=== PATIENT | female | born 1995 | race Caucasian/White ===

== ENCOUNTER 2022-01-08 13:37 | Outpatient (CLI) | payer BC, SELFPAY | END 2022-01-08 13:38 | disposition home or self-care (01) | PROVIDERS: PCP Family Medicine; Visit Provider Physician Assistant | DX: Z01.419 Encounter for gynecological examination (general) (routine) without abnormal findings (principal) | CPT/HCPCS: 88174 ==

== ENCOUNTER 2024-08-07 08:21 | Outpatient (CLI) | payer OTHER, SELFPAY | END 2024-08-07 08:22 | disposition home or self-care (01) | LOC: US 08:22 | PROVIDERS: PCP Family Medicine; Visit Provider Registered Nurse | DX: Z34.91 Encounter for supervision of normal pregnancy, unspecified, first trimester (principal); O20.9 Hemorrhage in early pregnancy, unspecified; Z3A.12 12 weeks gestation of pregnancy | CPT/HCPCS: 76801 ==

== ENCOUNTER 2024-08-07 09:44 | Outpatient (CLI) | payer OTHER, SELFPAY ==
[2024-08-07 13:00] LABS: Bacterial Vaginosis* Negative (Negative); Candida glab/krus NOT DETECTED (No Detected); Candida species DETECTED (No Detected); Trichomonas vaginalis NOT DETECTED (No Detected)
[2024-08-07 13:31] LABS: Chlamydia DNA Amplified* NOT DETECTED (No Detected); GC DNA Amplified* NOT DETECTED (No Detected)
== END 2024-08-07 09:45 | disposition home or self-care (01) ==
PROVIDERS: PCP Family Medicine; Visit Provider Registered Nurse
DX: Z34.91 Encounter for supervision of normal pregnancy, unspecified, first trimester (principal); N89.8 Other specified noninflammatory disorders of vagina; O20.9 Hemorrhage in early pregnancy, unspecified; Z3A.12 12 weeks gestation of pregnancy
CPT/HCPCS: 81513; 83020; 83021; 85660; 86592; 86703; 86704; 86706; 86762; 86787; 86803; 86850; 86900; 86901; 87086; 87340; 87481; 87491; 87591; 87661

== ENCOUNTER 2024-10-05 08:24 | Outpatient (CLI) | payer OTHER, SELFPAY ==
--- NOTE | 2024-10-05 08:15 | CRLHL7_ITS ---
For Patients: As a result of the 21st Century Cures Act, medical imaging exams and procedure reports are released immediately into your electronic medical record. You may view this report before your referring provider. If you have questions, please contact your health care provider. OB ULTRASOUND SURVEY LMP: 05/14/2024. MARIO by LMP: 02/18/2025. GA: 20 w, 4 d. INDICATION: FAS. TECHNIQUE: Real time cox scale imaging of the fetus was performed. Evaluate anatomy. Transabdominal. position: Breech. Cervix: Visualized. Technique: Transabdominal. Length of closed cervix: 4.9 cm. Placenta/cord: Placenta Position: Anterior. Technique: Transabdominal. Placenta tip to internal OS: 6.3 cm. Umbilical Cord: 3-vessel cord. Placenta insertion: Central. Amniotic Fluid: 6.2 cm SDP (greater than/equal to: 2- less than 8 cm). SURVEY: Observed Structures. Calvarium/Spine: Cerebellum: 2.1 cm, 21 w 1 d. Cisterna Magna: 4.8 mm. Nuchal Fold: 4.7 mm. Lateral Ventricle: 6.1 mm. CSP: Yes. Midline Falx: Yes. Choroid Plexus: Yes. Spine: Yes. Abdomen: Stomach: Yes. Abd Cord Insertion: Yes. Urinary Bladder: Yes. Kidneys: Yes. Diaphragm: Yes. Face: Nose/lips: Yes. Orbital view: Yes. Profile: Yes. Limbs: Upper Extremities: Yes. Lower Extremities: Yes. Hands: Yes. Feet: Yes. Vascular: 4-Chamber Heart: Yes. LVOT: Yes. RVOT: Yes. 3VV: Yes. 3VTV: Yes. BPD: 5.0 cm. 21 w, 1 d, 71 percent. HC: 18.4 cm. 20 w, 5 d, 48 percent. AC: 16.0 cm. 21 w, 1 d, 62 percent. FL: 3.3 cm. 20 w, 3 d, 38 percent. FL/AC ratio: 20.9 percent. HC/AC ratio: 1.2. heart rate: 142 bpm. age by this US: 21 w, 0 d. MARIO by this US: 02/15/2025. EFW: - g. Weight: - lbs, 13 oz. Percentile by MARIO: 59.1 percent. IMPRESSION: 1. Correlation of clinical and sonographic dates. 2. Anatomic survey appeared normal although the spine was incompletely visualized. Short-term follow-up recommended. 3. Residual blood products are present adjacent to the placenta measuring 10.6 x 1.6 x 2.7 cm on the right and 12.3 x 2.3 x 1.9 cm on the left. Ramy Castro M.D. Diagnostic Radiologist [email or web address] SP/Dictated by: Ramy Castro MD @ 10/05/2024 11:02:00 AM (Electronically Signed)
== END 2024-10-05 08:25 | disposition home or self-care (01) ==
LOC: US 08:26
PROVIDERS: PCP Family Medicine; Visit Provider Advanced Practice Midwife
DX: Z34.92 Encounter for supervision of normal pregnancy, unspecified, second trimester (principal); Z3A.20 20 weeks gestation of pregnancy
CPT/HCPCS: 76805

== ENCOUNTER 2024-12-03 10:05 | Outpatient (CLI) | payer OTHER, SELFPAY | END 2024-12-03 10:06 | disposition home or self-care (01) | LOC: NFLDREF 12-08 15:47 | PROVIDERS: PCP Family Medicine; Referring Provider Family Medicine; Visit Provider Midwife | DX: Z34.83 Encounter for supervision of other normal pregnancy, third trimester (principal) | CPT/HCPCS: 86592 ==

== ENCOUNTER 2025-01-22 13:34 | Outpatient (CLI) | payer OTHER, SELFPAY | END 2025-01-22 13:35 | disposition home or self-care (01) | LOC: NFLDREF 01-27 19:03 | PROVIDERS: PCP Family Medicine; Referring Provider Family Medicine; Visit Provider Advanced Practice Midwife | DX: Z34.93 Encounter for supervision of normal pregnancy, unspecified, third trimester (principal); Z3A.36 36 weeks gestation of pregnancy | CPT/HCPCS: 87081; 87653 ==

== ENCOUNTER 2025-02-20 19:26 | Inpatient (IN) | payer OTHER, SELFPAY ==
[2025-02-20 19:46] VITALS: BP 135/94; PULSE 92; RESP 16; TEMP 37
[2025-02-20 19:55] VITALS: BP 130/87; PULSE 96
--- NOTE | 2025-02-20 20:39 | P.LDBA_ITS ---
Subjective History of Present Illness Date Seen: 02/20/25 Narrative: Mirtha is being admitted to Labor and Delivery for elective IOL. She is a 29 year old at 40.2 weeks gestation. Her full history and physical was dictated by Stoney Carr CNM on 02/01/25. Please see this for details. She was checked earlier today and was found to be 2cm/50% and doesn't feel she had much for contractions or change in condition. Offered but declined SVE at this time. We discussed options for IOL with a cheng score of 6. We discussed risks and benefits of Pitocin and Cytotec. She would like to proceed with vaginal Cytotec for her induction. We briefly discussed the possibility of increasing the dose from 25mcg to 50mcg if no changes or contractions after 2 doses. Reviewed the possibility of Morphine and Vistaril for therapeutic rest tonight. She is considering. Specific Issues/Plans G 2 P 1001 : Alexander Daughter Kit. It is a boy! H&P 02/01/25 Stoney Carr CNM # Placental mg: 3.3 x0.8x1.8cm. Reassess at 20 week FAS: 2 large lakes seen (Rt-10.6 x 1.6 x 2.7 cm) (Lt 12.3 x 2.3 x 1.9 cm) [facility] referral for Level II: no concerns # Mild right urinary tract dilation, measuring 4.8 mm resolved Ultrasound: 1st trimester US (08/06/24): Sonographic gestational age 12 weeks 4 days and sonographic due date of 02/15/2025. Anterior subchorionic hemorrhage measures 4.5 x 1.4 x 5.6 cm. Placental Mg measures 3.3 x 0.8 x 1.8 cm. Anatomy US (10/05/2024): IMPRESSION: 1. Correlation of clinical and sonographic dates. 2. Anatomic survey appeared normal although the spine was incompletely visualized. Short-term follow-up recommended. 3. Residual blood products are present adjacent to the placenta measuring 10.6 x 1.6 x 2.7 cm on the right and 12.3 x 2.3 x 1.9 cm on the left. [facility] Level II follow-up US (10/19/2024): 1. SIUP, 2. Right urinary tract dilation (UTD-A1) with right pelvis measuring 4.8 mm. No calyceal dilation and renal parenchyma is normal. No evidence of hydroureter and normal bladder. 3. No other anomalies detected by US. 4. EFW 53%. 5. amniotic fluid volume appears normal. 6. Cervix appeared long and closed on transabdominal imaging. Lev 2 Anatomy scan: 12/29/24: F/u inadequate views and placental lakes- Lakes resolved and all other findings normal. No further f/u recommended. Pap: Due Flu: Up-to-date Covid: Booster completed 08/07/2024 Tdap: 12/15/2024 RSV: N/A 32wk Mental Health: PHQ-9= [] ELAINE-7= [] OB - Problem Based A/P Additional Plan (1) Elective induction of labor planned: Status: Acute Plan ASSESSMENT:? at 40.2 weeks gestation? GBS negative? complicated by: placental lakes-resolved, mild right urinary tract dilation-resolved? Labor type: elective IOL? Blood type:?O+ ?? PLAN:? 1. Reviewed risks and benefits of IOL with Pitocin vs Cytotec. Pt prefers vaginal Cytotec. Pitocin to follow if needed.? 2. Considering water . Consent signed. Hep C negative.? 3. Candidate for analgesia of choice. Planning unmedicated but open to epidural.? 4. Anticipate ? 5. IV placement not needed at this time. Consider placement if patient condition changes. 6. Monitoring per Cytotec induction policy. Delivery/Labor/Induction Plan Plan: induction Induction method: per misoprostol protocol OB Result Labs Blood Type: O (+) positive Rubella: immune RPR/VDLR: nonreactive GBS Status: negative HBsAG: negative OB Exam Physical Exam Vital signs: Temp Pulse Resp BP 98.6 F 96 16 130/87 02/20/25 19:46 02/20/25 19:55 02/20/25 19:46 02/20/25 19:55 Narrative: Psychiatric:? Alert and oriented x3? HEENT:? Normocephalic, atraumatic? Neck:? Supple without adenopathy or thyromegaly? Lungs:? Clear to auscultation bilaterally? Heart:? Regular rate and rhythm, no murmur, rub or gallop? Abdomen:? Soft, nontender, and gravid? Extremities:? No edema or erythema? Detailed Labor and Delivery Exam Patient Gravid: yes Dilation (cm): 2 Effacement (%): 50 Cervix position: posterior Consistency: soft Cervical ripeness score: 6 Contraction Frequency: occasional, pt reports not feeling or very mild cramping only Fetus (Single) Station: -3 Amniotic Membrane Status: intact Heart Rate Baseline: 130 Monitor Accelerations: Present Monitor Decelerations: None Sprinkler Installer Variability: Moderate (6-25)
[2025-02-20 21:31] VITALS: BP 130/83; PULSE 83
[2025-02-21] VITALS (14 sets, daily range): BP systolic 108–127; BP diastolic 57–84; PULSE 70–91; RESP 18; TEMP 36.4–36.8; O2SAT 96
--- NOTE | 2025-02-21 07:29 | P.OBPN_ITS ---
Subjective Date Seen: 02/21/25 Narrative: Mirtha received 3 doses of vaginal Cytotec overnight. She utilized Vistaril and slept well. She is feeling a little more cramping this morning and is nicole regularly. We discussed options for continuing with the IOL including Pitocin titration and AROM. She would like to proceed with AROM and will consider Pitocin if no change in a couple of hours. Encouraged her to eat and change positions/ambulate this morning. Denies further questions or concerns. Objective Vital Signs: Last Vital Signs Temp 97.9 F 02/21/25 07:19 Pulse 81 02/21/25 07:19 Resp 18 02/21/25 07:19 BP 122/72 02/21/25 07:19 Pulse Ox 96 02/21/25 03:51 Pelvic Exam Dilation (cm): 3 Effacement (%): 70 Station: -1 Contractions Monitor mode: External Contraction Frequency: 2-3 Contraction pattern: Regular Contraction intensity: Moderate Assessment Assessment: induction ongoing Station: -1 Amniotic Membrane Status: AROM Status: Category l Heart Rate Baseline: 135 Box Car Loader Variability: Moderate (6-25) Monitor Accelerations: Present Monitor Decelerations: None Plan Plan: ASSESSMENT:? at 40.3 weeks gestation? GBS negative? complicated by: placental lakes-resolved, mild right urinary tract dilation-resolved? Labor type: elective IOL? Blood type:?O+ ?? PLAN:? 1. Reviewed risks and benefits of continuing IOL with Pitocin vs AROM. Pt prefers AROM with Pitocin to follow if needed.? 2. Considering water . Consent signed. Hep C negative.? 3. Candidate for analgesia of choice. Planning unmedicated but open to epidural.? 4. Anticipate ? 5. IV in place 6. Intermittent monitoring unless patient condition changes and per policy.
[2025-02-21] MEDS: LACTATED RINGERS 1000 ML 1,000 ML IV (08:30)
[2025-02-21] MEDS: OXYTOCIN 30 unit/500 ML in NS 30 UNIT/500 ML BAG 300 UNIT IVPB (09:15)
[2025-02-21] MEDS: IBUPROFEN 600 MG TABLET PO ×2 (09:45→19:32)
[2025-02-21] MEDS: miSOPROStoL 800 MCG/4 TABLET PR (11:00)
--- NOTE | 2025-02-21 11:24 | W.PM.OBVAGDE ---
OB Procedure Vag Delivery Mother Details Mother Details: The patient is a 29 year-old, 2, Para 1, admitted on 02/20/25 at 40.3 Days gestation. : 2 Para: 2 Weeks Gestation: 40.3 Admission Date: 02/20/25 Additional Details Amniotic Membrane Status: AROM Amniotic Membrane Rupture Date: 02/21/25 Amniotic Membrane Rupture Time: 07:13 Amniotic Membrane Fluid Description: Clear Analgesia/Anesthesia Type: None Waterbirth: No Pitcoin: Yes (AMTSL) Intrapartal Events: Labor Induction and Precipitous Labor <3 Hrs Induction Method: per misoprostol protocol Delivery augmentation: rupture of membranes Labor Onset: 07:30 Complete: 08:42 Pushin:42 (involuntary pushing began at 0838) Heart: heart tones during second stage were per intermittent auscultation. Auscultated by EFM as doppler was not readily available. FHTs heard in the 130's without decreases heard. Delivery Details Delivery Date: 02/21/25 Delivery Time: 09:10 Route of delivery: Infant Gender: Male Viability: Alive; Heart Rate Present Position at Delivery: OA Delivery Details: Joyce was admitted for IOL and progressed with Cytotec followed by AROM augmentation. AROM noted at 0713 with clear fluid. Patient was involuntarily pushing at 0838 and complete and actively pushing at 0842. of a viable male at 0910 in hands and knees on the bathroom floor. Vertex delivered OA. No nuchal cord or shoulder. Body delivered easily and without incident. passed between the mothers legs and to mothers abdomen with a vigorous cry. Cord was clamped and cut at 4-5 minutes due to increased bleeding. She was then assisted to the bed for delivery of the placenta. APGARS were 9 at one minute and 10 at five minutes respectively. Mouth was bulb suctioned. Intact placenta with a 3 vessel cord delivered spontaneously at 0923. Fundus firm. Very small 1st degree perineal laceration identified. No repair needed as it was hemostatic and well approximated. QBL 50mL in the drape and EBL 400 on the bathroom floor, not measurable. Total blood loss 450mL. Mother and baby stable; mother plans to breastfeed. Infant weight 8lb 6 oz. Pitocin was administered for AMTSL. Around 1100 bleeding increased slightly to a trickle with fundal massage so after shared decision making rectal Cytotec was administered. Bleeding stable since. 1 Minute Interval Total Score: 9 5 Minute Interval Total Score: 10 Additional Details Shoulder Dystocia: No Placenta Delivery Time: 09:23 Placental Delivery Description: Spontaneous Delivery repair: Vicryl Procedure Done: Global Blood Loss: 450 Laceration: Perineal - 1st Degree Episiotomy Description: Midline Blood Loss Measurement Type: EBL Bakri Used: No Sponge/Need Count Correct: Yes Cord Vessel Description: 3 Vessels Event Summary Status: Mother and infant were stable after delivery. Disposition: floor
[2025-02-22 01:40] VITALS: BP 120/82; PULSE 72; RESP 16; TEMP 36.4; O2SAT 97
[2025-02-22] MEDS: IBUPROFEN 600 MG TABLET PO (01:49)
[2025-02-22 05:57] VITALS: BP 113/73; PULSE 75; RESP 16; TEMP 36.4; O2SAT 97
[2025-02-22 06:34] LABS: Hemoglobin* 11.9 gm/dL (12.0-16.0)
--- NOTE | 2025-02-22 07:22 | P.DS_ITS ---
DS: Providers Provider Date Seen: 02/22/25 Date of admission: 02/20/25 19:26 Primary care physician: Ani Vaughn MD Admitting Clinician: Rosi Carr CNM Attending Physician on discharge: Darci STONER APRN Date of Discharge: 02/22/25 DS: Diagnosis Discharge Diagnosis (1) care and examination of lactating mother: Status: Acute Exam Narrative: Exam Narrative: GENERAL APPEARANCE:? normal affect, alert, no distress MOOD:? appropriate CHEST:? clear to auscultation HEART:? regular rate and rhythm ABDOMEN:? soft, non-tender the uterine fundus is 1finger breadth below Umbilicus, Midline and is appropriate for the stage of recovery. PERINEUM:?minimal edema of the perineum, there is a Perineal Laceration,?repair is well approximated with minimal edema and no erythema. EXTREMITIES:? normal and no edema Const: Vital Signs, click to edit/add: Vital Signs - 24 hr 02/21/25 09:25 02/21/25 09:40 02/21/25 09:55 Temperature Pulse Rate 86 89 81 Pulse Rate [Blood Pressure Cuff] Respiratory Rate Blood Pressure 116/76 109/84 116/74 Blood Pressure [Le ft Arm] Pulse Oximetry Oxygen Delivery Me thod 02/21/25 10:09 02/21/25 10:24 02/21/25 10:39 Temperature Pulse Rate 81 80 72 Pulse Rate [Blood Pressure Cuff] Respiratory Rate Blood Pressure 127/73 123/71 120/66 Blood Pressure [Le ft Arm] Pulse Oximetry Oxygen Delivery Me thod 02/21/25 10:54 02/21/25 11:09 02/21/25 11:09 Temperature 97.9 F Pulse Rate 70 83 Pulse Rate [Blood Pressure Cuff] Respiratory Rate 18 Blood Pressure 126/72 121/71 Blood Pressure [Le ft Arm] Pulse Oximetry Oxygen Delivery Me thod 02/21/25 15:19 02/21/25 15:30 02/21/25 20:26 Temperature 98.3 F 97.9 F Pulse Rate 87 Pulse Rate [Blood Pressure Cuff] 87 84 Respiratory Rate 18 18 Blood Pressure 108/57 L Blood Pressure [Le ft Arm] 108/57 L 120/83 Pulse Oximetry 96 Oxygen Delivery Me thod Room Air 02/22/25 01:40 02/22/25 05:57 Temperature 97.5 F L 97.6 F Pulse Rate Pulse Rate [Blood Pressure Cuff] 72 75 Respiratory Rate 16 16 Blood Pressure Blood Pressure [Le ft Arm] 120/82 113/73 Pulse Oximetry 97 97 Oxygen Delivery Me thod Room Air Room Air OB - DS: Summary Hospital Course Hospital Course: Mary Anne is a 29 y.o. G 2 P 2001 who was admitted to [facility] for electve IOL She received cytotec and had AROM.? She had a NVD that was uncomplicated. The patient feels well.? The pain is well controlled with current medications.? She has no new complaints.? She is breast feeding and reports things are going well. the patient has done well.? Vitals have been stable.? She has remained afebrile.? Has a good appetite, is tolerating a general diet.? She is voiding without difficulty.? She is passing gas and has had a bowel movement.? She is ambulating and denies any dizziness.? Has small amount of rubra lochia. She is planning [place] possibly for prevention.? ?? Problems: none? ?? plan:? Discharge home with baby.? Follow up in 2 weeks and 6 weeks.? , may see if needed? Hgb 11.9. ? ? Labs WNL or stable with trending? ? ? Call for signs/symptoms of preeclampsia? Peripartum Data delivery method: Vaginal Laceration description: Perineal - 1st Degree Episiotomy description: None complications: none [place] Gender: Male Infant Discharge Plan: Home Status at Discharge Functional status at discharge: independent ambulation Overall status at discharge: patient is progressing back to baseline Time Spent with Patient Time attestation: Total time spent providing and/or coordinating discharge services: Time spent: Less than 30 minutes Discharge Plan Discharge Disposition: Home, Self-Care Date of Admission: 02/20/25 19:26 Attending Provider on Discharge: Krystal Mendez Primary Care Provider: Ani Vaughn Condition: Stable Anticipated Discharge Date/Time: 02/22/25 12:00 Discharge Medications: No Action DHA 200 mg capsule 200 mg PO DAILY Discharge Orders: Discharge Order (Routine); Ordered 02/22/25 Ordered By: Krystal Mendez Patient Education: OB Over the Counter Medication Information, OB Vaginal/Breast Feeding Additional Instructions: Discharge instructions were reviewed with the patient including signs and symptoms of infection and home going medications Nothing vaginally for 6 weeks: no tampons or intercourse Do not drive while taking narcotic pain medication(s) Off Work or School for weeks Symptoms to report to doctor: * Bleeding that saturates more than one pad per hour * Passing clots larger than the size of a golf ball * Pain not relieved by prescribed medication * Fever above 100.4 degrees Fahrenheit * A foul vaginal odor * Difficulty in emotions, mood, and functions * Thoughts of hurting yourself and/or * Painful, reddened area in your breast * Any drainage, redness, or tenderness in your IV/epidural site * Severe headache that doesn't improve after taking medications * Changes in vision, including temporary loss of vision, blurred vision, and/or light sensitivity * Upper abdominal pain (usually under ribs on the right side) * Decrease in urination or painful, frequent urinating * Chest pain * Shortness of breath * Tenderness or pain with redness and/swelling in the calf(s) of your leg 2-week visit: discuss infant feeding concerns, review control options and screen for anxiety/depression. 6-week visit for an annual exam. consultation services are available to all mothers and babies for the first year after delivery.? To make an appointment, please call [phone]. Activity Level: Activity as Tolerated and No strenuous activity Discharge Diet: Regular Follow Up Appointments: [facility] [Provider Group] Forms: [facility], [facility] Instructions
== END 2025-02-22 13:30 | disposition home or self-care (01) | DRG 807 ==
PROVIDERS: Admitting Provider Advanced Practice Midwife; PCP Family Medicine; Visit Provider Advanced Practice Midwife
DX: O48.0 Post-term pregnancy (principal); Z37.0 Single live birth; O62.3 Precipitate labor; O70.0 First degree perineal laceration during delivery; Z3A.40 40 weeks gestation of pregnancy
CPT/HCPCS: 36415; 59200; 85018; 86592; A9270; J7120

== ENCOUNTER 2025-04-13 16:57 | Outpatient (CLI) | payer OTHER, SELFPAY ==
[2025-04-15 13:27] LABS: HPV Source Cervical
[2025-04-17 12:44] LABS: Pap Test Digital Imaging Done
== END 2025-04-13 16:58 | disposition home or self-care (01) ==
PROVIDERS: PCP Family Medicine; Visit Provider Midwife
DX: Z12.4 Encounter for screening for malignant neoplasm of cervix (principal); Z30.9 Encounter for contraceptive management, unspecified
CPT/HCPCS: 87624; 87625; 88141; 88142; 88175